=== PATIENT | female | born 1995 | race African-American/Black ===

== ENCOUNTER 2017-11-30 00:05 | Emergency (ER) | payer SELFPAY ==
[~2017-11-30] VITALS: Ht 172.7 cm; Wt 59.1 kg
[2017-11-30 00:08] VITALS: TEMP 97
[2017-11-30 00:26] LABS: BASO % 0.8 % (0.0-2.0); EOS % 0.4 % (0-4.0); GRAN # 2.4 (1.4-6.5); GRAN % 46.3 % (42.2-75.2); HEMOGLOBIN 11.1 g/dl (12.0-15.0); LYMPH # 2.2 (1.2-3.4); LYMPH % 42.1 % (20.0-51.0); MEAN CELL VOLUME 87 fl (80.0-95.0); MEAN CORPUSCULAR HEMOGLOBIN 29 pg (26.0-32.0); MEAN CORPUSCULAR HGB CONC 33 g/dl (33.0-37.0); MEAN PLATELET VOLUME 11.1 fl (7.4-10.4); MONO # 0.5 (0.1-0.6); MONO % 9.3 % (1.7-9.3); PLATELET COUNT 247 K/mm3 (130-400); RED BLOOD COUNT 3.89 M/mm3 (4.10-5.30); REDCELL DISTRIBUTION WIDTH-CV 13.2 % (11.5-14.5)
[2017-11-30 00:35] LABS: ALANINE AMINOTRANSFERASE 17 U/L (9-52); ALBUMIN 3.9 gm/dL (3.5-5.0); ALCOHOL(ethanol),MEDICAL 285 mg/dL; ALKALINE PHOSPHATASE 59 U/L (50-136); ANION GAP 15 mmol/L (7-16); AST,SGOT 29 U/L (15-37); BILIRUBIN,TOTAL < 0.1 mg/dL (0.0-1.0); BLOOD UREA NITROGEN 8 mg/dL (7-17); CALCIUM 8.7 mg/dL (8.4-10.2); CARBON DIOXIDE 22 mmol/L (22-30); CHLORIDE 105 mmol/L (98-107); CREATININE, serum 0.61 mg/dL (0.52-1.25); GLUCOSE 130 mg/dL (74-106); MAGNESIUM 2.1 mg/dL (1.6-2.3); PHOSPHOROUS 2.7 mg/dL (2.5-4.5); SODIUM 142 mmol/L (137-145); TOTAL PROTEIN 7.2 gm/dL (6.4-8.2)
[2017-11-30 00:43] LABS: POTASSIUM 2.9 mmol/L (3.4-5.0)
[2017-11-30 06:26] VITALS: BP 103/67; PULSE 85
[2017-11-30] MEDS ORDERED: K-DUR 10 MEQ T10 MEQ PO (07:44)
== END 2017-11-30 04:00 | disposition home or self-care (01) ==
LOC: COL.ER 00:05
PROVIDERS: Emergency Medicine
DX: F10.129 Alcohol abuse with intoxication, unspecified (principal); Y90.8 Blood alcohol level of 240 mg/100 ml or more
CPT/HCPCS: J2405; J3480; J7030; J7120